=== PATIENT | female | born 1985 | race Caucasian/White ===

== ENCOUNTER 2018-03-20 14:02 | Emergency (ER) | payer BC ==
[~2018-03-20] VITALS: Ht 162.6 cm; Wt 59.0 kg
[2018-03-20] MEDS ORDERED: Bacitracin Oint 15gm Tube TOPIC ONE (14:15)
[2018-03-20 14:19] VITALS: BP 105/70
[2018-03-20] MEDS ORDERED: Lidocaine 1% Plain 30 ml INJ ONE (14:30)
[2018-03-20] MEDS ORDERED: CEPHALEXIN500 MG ORAL (14:59)
[2018-03-20] MEDS ORDERED: BACITRACIN15 GM TOPIC (14:59)
[2018-03-20] MEDS ORDERED: Bacitracin Oint UD TOPIC ONE (15:00)
[2018-03-20 15:27] VITALS: BP 105/72
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
== END 2018-03-20 15:27 ==
LOC: EDBD 14:02 → EMR 15:03
DX: S61.512A Laceration without foreign body of left wrist, initial encounter (principal); X78.1XXA Intentional self-harm by knife, initial encounter; F32.9 Major depressive disorder, single episode, unspecified; Y93.89 Activity, other specified; Y92.89 Other specified places as the place of occurrence of the external cause
CPT/HCPCS: 12001; 99283; J2001